=== PATIENT | female | born 1975 | race Caucasian/White ===

== ENCOUNTER 2017-08-09 11:25 | Emergency (ER) | payer BC ==
[~2017-08-09] VITALS: Ht 167.6 cm; Wt 65.2 kg
[2017-08-09 11:36] VITALS: BP 139/89; TEMP 99.1
[2017-08-09 12:34] VITALS: PULSE 81
[2017-08-09] MEDS ORDERED: CLEOCIN HCL300 MG PO (12:35)
[2017-08-09] MEDS ORDERED: NORCO 325 MG-51 TAB PO (12:35)
== END 2017-08-09 12:45 | disposition home or self-care (01) ==
LOC: COL.ER 11:25
DX: M27.8 Other specified diseases of jaws (principal); K02.9 Dental caries, unspecified; F17.210 Nicotine dependence, cigarettes, uncomplicated